=== PATIENT | female | born 2000 | race Caucasian/White ===

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

== ENCOUNTER 2018-12-27 16:35 | Emergency (ER) | payer MEDICAID ==
[~2018-12-27] VITALS: Ht 162.6 cm; Wt 72.7 kg
[2018-12-27 16:47] VITALS: BP 117/67; TEMP 98.4
[2018-12-27 18:13] LABS: COLLECTION METHOD CLEAN CATCH
[2018-12-27 18:17] LABS: BASO % 0.1 % (0.0-2.0); EOS % 0.5 % (0-4.0); GRAN # 6.2 (1.4-6.5); GRAN % 71.4 % (42.2-75.2); HEMATOCRIT 35.7 % (35.0-45.0); HEMOGLOBIN 12.1 g/dl (12.0-15.0); LYMPH # 1.9 (1.2-3.4); LYMPH % 21.7 % (20.0-51.0); MEAN CELL VOLUME 92 fl (80.0-95.0); MEAN CORPUSCULAR HEMOGLOBIN 31 pg (26.0-32.0); MEAN CORPUSCULAR HGB CONC 34 g/dl (33.0-37.0); MEAN PLATELET VOLUME 9.7 fl (7.4-10.4); MONO # 0.5 (0.1-0.6); PLATELET COUNT 245 K/mm3 (130-400); RED BLOOD COUNT 3.87 M/mm3 (4.10-5.30); REDCELL DISTRIBUTION WIDTH-CV 12.7 % (11.5-14.5)
[2018-12-27 18:23] LABS: MUCOUS Present /lpf; PH 5 (5-8); URINE APPEARANCE Hazy; URINE BACTERIA Rare /hpf; URINE BILIRUBIN Negative (NEGATIVE); URINE BLOOD Negative (NEGATIVE); URINE COLOR Yellow; URINE GLUCOSE Negative (NEGATIVE); URINE KETONE Negative (NEGATIVE); URINE LEUKOCYTE ESTERASE 2+ (NEGATIVE); URINE NITRATE Negative (NEGATIVE); URINE PROTEIN(semi-quant) Negative (NEGATIVE); URINE UROBILINOGEN >=4.0 mg/dL (NEGATIVE)
[2018-12-27 18:26] LABS: ALBUMIN 4.2 gm/dL (3.5-5.0); BILIRUBIN,TOTAL 0.5 mg/dL (0.0-1.0); CALCIUM 9.3 mg/dL (8.4-10.2); CREATININE, serum 0.59 (0.52-1.25); POTASSIUM 3.6 mmol/L (3.4-5.0); TOTAL PROTEIN 7.4 gm/dL (6.4-8.2)
[2018-12-27] MEDS ORDERED: OMNICEF 300MG300 MG PO (18:35)
[2018-12-27 18:55] VITALS: PULSE 82
== END 2018-12-27 18:55 | disposition home or self-care (01) ==
LOC: COL.ER 16:35
PROVIDERS: Physician Assistant
DX: O23.91 Unspecified genitourinary tract infection in pregnancy, first trimester (principal); Z90.89 Acquired absence of other organs; Z3A.12 12 weeks gestation of pregnancy

== ENCOUNTER 2019-03-08 17:29 | Outpatient (CLI) | payer MEDICAID ==
[~2019-03-08] VITALS: Ht 162.6 cm; Wt 68.2 kg
[~2019-03-08 17:29] MED LIST changes: +OMNICEF 300MG300 MG PO
--- NOTE | 2019-03-08 17:35 | NUR ---
Patient ambulatory to LR6 with mother, changed into gown, and FHR/TOCO monitor placed and explained. Patient states she noticed a gush of fluid and has continued to leak. Patient does not Doctor with [facility] and has been seen in [place] but will be soon moving and going to a doctor here. Denies any major complications. States due date is July 08, 2018. Patient 22.3 weeks and first . Plan of care discussed. 1740: Amniotest done and negative with yellow discharge noted on glove. FHR doppled and baseline 145bpm. called and updated. 1755: Patient given discharge instructions, agrees/understands and signs papers. 1800: Ambulates off unit with mother.
[2019-03-08] MEDS ORDERED: PRENATAL TABLET PO (17:46)
== END 2019-03-08 18:00 | disposition home or self-care (01) ==
LOC: LDRO 17:29
DX: Z34.00 Encounter for supervision of normal first pregnancy, unspecified trimester (principal); Z3A.00 Weeks of gestation of pregnancy not specified

== ENCOUNTER 2019-03-08 22:36 | Outpatient (CLI) | payer MEDICAID ==
[~2019-03-08 22:36] MED LIST changes: +PRENATAL TABLET PO
--- NOTE | 2019-03-08 22:50 | NUR ---
2249 HERE WITH MOTHER AND AUNT C/O SHARPINTERMITTENT ABDOMINAL PAIN LASTING 45 SECONDS AT LONGEST. EFM ON NO UTERINE ACTIVITY PALPATED OR SHOWN ON MONITOR. CX LTC. FHR WNL. NO ABD TENDERNESS UPON EXAM.PT STATES PAIN IS LESS NOW THAT SHE IS HERE. [address] VELEZ. LABS AND UA DONE ON EARLIER ADMISSON TODAY. DISCHARGE ORDERS OBTAINED
[2019-03-08 23:59] VITALS: BP 100/58; PULSE 88; TEMP 98.4
== END 2019-03-08 23:50 | disposition home or self-care (01) ==
LOC: LDRO 22:36
DX: O99.89 Other specified diseases and conditions complicating pregnancy, childbirth and the puerperium (principal); R10.9 Unspecified abdominal pain; Z3A.22 22 weeks gestation of pregnancy

== ENCOUNTER 2019-04-16 11:18 | Outpatient (CLI) | payer MEDICAID ==
[~2019-04-16] VITALS: Ht 162.6 cm; Wt 71.4 kg
[2019-04-16 11:34] VITALS: BP 103/66; PULSE 100; TEMP 98.2
[2019-04-16 12:10] LABS: COLLECTION METHOD CLEAN CATCH
[2019-04-16 12:34] LABS: PH 7 (5-8); URINE APPEARANCE Clear; URINE BACTERIA None Seen /hpf; URINE BILIRUBIN Negative (NEGATIVE); URINE BLOOD Negative (NEGATIVE); URINE COLOR Straw; URINE GLUCOSE Negative (NEGATIVE); URINE KETONE Negative (NEGATIVE); URINE LEUKOCYTE ESTERASE 1+ (NEGATIVE); URINE NITRATE Negative (NEGATIVE); URINE PROTEIN(semi-quant) Negative (NEGATIVE); URINE UROBILINOGEN Negative (NEGATIVE); URINE WBC 0-2 /hpf
[2019-04-16 12:46] LABS: TRICYCLIC ANTIDEPRESS URINE NEGATIVE
== END 2019-04-16 13:00 | disposition home or self-care (01) ==
LOC: LDRO 11:18
PROVIDERS: Obstetrics & Gynecology
DX: O36.8190 Decreased fetal movements, unspecified trimester, not applicable or unspecified (principal); Z3A.00 Weeks of gestation of pregnancy not specified

== ENCOUNTER 2019-12-03 20:10 | Emergency (ER) | payer MEDICAID ==
[~2019-12-03] VITALS: Ht 162.6 cm; Wt 81.8 kg
[2019-12-03 21:06] LABS: COLLECTION METHOD CLEAN CATCH
[2019-12-03 21:12] LABS: MUCOUS Present /lpf; PH 6 (5-8); URINE APPEARANCE Hazy; URINE BACTERIA Rare /hpf; URINE BILIRUBIN Negative (NEGATIVE); URINE BLOOD Negative (NEGATIVE); URINE COLOR Yellow; URINE GLUCOSE Negative (NEGATIVE); URINE KETONE Trace (NEGATIVE); URINE LEUKOCYTE ESTERASE 1+ (NEGATIVE); URINE NITRATE Negative (NEGATIVE); URINE PROTEIN(semi-quant) Negative (NEGATIVE); URINE RBC 0-2 /hpf; URINE UROBILINOGEN Negative (NEGATIVE)
[2019-12-03 22:14] VITALS: BP 120/74; PULSE 85; TEMP 98.2
== END 2019-12-03 22:07 | disposition home or self-care (01) ==
LOC: COL.ER 20:10
PROVIDERS: Emergency Medicine
DX: R10.32 Left lower quadrant pain (principal)

== ENCOUNTER 2020-04-27 19:46 | Emergency (ER) | payer SELFPAY ==
[~2020-04-27] VITALS: Ht 162.6 cm; Wt 67.3 kg
[2020-04-27 19:52] VITALS: TEMP 98.7
[2020-04-27] MEDS ORDERED: ULTRAM 50MG TAB50 MG PO (22:07)
[2020-04-27 22:41] VITALS: BP 112/79; PULSE 104
== END 2020-04-27 22:46 | disposition home or self-care (01) ==
LOC: COL.ER 19:46
DX: M25.551 Pain in right hip (principal); F17.210 Nicotine dependence, cigarettes, uncomplicated

== ENCOUNTER 2020-12-21 10:47 | Emergency (ER) | payer MEDICAID ==
[~2020-12-21] VITALS: Ht 162.6 cm; Wt 63.6 kg
[~2020-12-21 10:47] MED LIST changes: +ULTRAM 50MG TAB50 MG PO
[2020-12-21 11:52] LABS: STREP SCREEN NEGATIVE
[2020-12-21] MEDS ORDERED: ZOFRAN 4MG T4 MG/TAB PO (11:52)
[2020-12-21 12:02] VITALS: BP 114/62; PULSE 120; TEMP 100.5
== END 2020-12-21 12:15 | disposition home or self-care (01) ==
LOC: COL.ER 10:47
PROVIDERS: Nurse Practitioner Primary Care
DX: U07.1 COVID-19 (principal)